=== PATIENT | female | born 1965 | race American Indian/Alaskan Native ===

== ENCOUNTER 2017-03-08 10:34 | Outpatient (CLI) | payer OTHER ==
--- NOTE | 2017-03-09 14:18 | Mammography Report ---
BILATERAL DIGITAL AUGMENTED SCREENING MAMMOGRAM with CAD: 03/08/17 10:34:00 CLINICAL: Routine screening. COMPARISON:02/02/15 and 05/01/13 FINDINGS: Screening views with and without implant displacement demonstrate scattered bilateral fibroglandular densities. No mass, architectural distortion or suspicious calcifications. Bilateral subglandular implants. The shape of both implants suggestive there has been some leakage and both implants appear to have lost some volume. IMPRESSION: No mammographic evidence of malignancy. Suspect bilateral implant rupture. BI-RADS CATEGORY: 2 -- Benign RECOMMENDATION: Routine mammographic screening in one year. ACR BI-RADS MAMMOGRAPHIC CODES: 0 = Needs additional imaging evaluation; 1 = Negative; 2 = Benign; 3 = Probably benign; 4 = Suspicious; 5 = Malignant; 6 = Known biopsy-proven malignancy COMMENT: 1. Dense breast tissue, i.e., adenosis, fibrocystic changes, etc., may obscure an underlying neoplasm. 2. Approximately 10% of cancers are not detected with mammography. 3. A negative mammography report should not delay biopsy if a clinically suspicious mass is present. COMMENT: Patient follow-up letters are generated via our [facility] application.
== END 2017-03-08 10:35 | disposition home or self-care (01) ==
LOC: SPVWC 10:34
PROVIDERS: ATTEND Internal Medicine
DX: Z12.31 Encounter for screening mammogram for malignant neoplasm of breast (principal)
CPT/HCPCS: 77067; G0202